=== PATIENT | female | born 1985 | race African-American/Black ===

== ENCOUNTER 2022-01-10 18:15 | Emergency (ER) | payer BC ==
[~2022-01-10] VITALS: Ht 162.6 cm; Wt 109.0 kg
[2022-01-10 22:30] VITALS: BP 128/78
[2022-01-10] MEDS ORDERED: IBUP-2029 MT (22:33)
[2022-01-10] MEDS ORDERED: CYCL10TA21 MT (22:33)
== END 2022-01-10 22:42 | disposition home or self-care (01) ==
LOC: ER 18:15
DX: S89.92XA Unspecified injury of left lower leg, initial encounter (principal); Z88.2 Allergy status to sulfonamides; Z98.890 Other specified postprocedural states; X58.XXXA Exposure to other specified factors, initial encounter; Y93.9 Activity, unspecified; Y92.89 Other specified places as the place of occurrence of the external cause; Y99.8 Other external cause status
CPT/HCPCS: 73560; 99283